=== PATIENT | male | born 1960 | race Caucasian/White ===

== ENCOUNTER 2017-04-29 03:25 | Emergency (ER) | payer OTHER ==
[~2017-04-29] VITALS: Ht 180.3 cm; Wt 117.9 kg
--- NOTE | ~2017-04-29 | CR93 ---
[facility] A Service of [facility] RADIOLOGY TEXT RESULTS PATIENT: REJI URBAN LOCATION: [facility] : 56 UNIT #: [id number] AGE: [address]: Naresh Latham DO SEX: M ORDER DR: [id number] [facility] [address] [place], [place] [address] [id number] E MR#: [id number] Acc #: [id number] NAME: REJI URBAN : 1960 SEX: M STUDY DATE/TIME: 04/29/2017 4:35 UNIT: [facility] ROOM: STUDY DESCRIPTION: CR Elbow Min 3 Views Lt Attending Physician: Naresh Latham D.O. Ordering Physician: Naresh Latham D.O. Primary Care Physician: Mary Oliva A.P.R.N. MEDICAL IMAGING REPORT This report is preliminary unless electronic signature is present EXAM Left elbow series INDICATION Left elbow pain for the past 3 weeks. PROCEDURE Three views of the left elbow. COMPARISON None. FINDINGS No acute fracture. No dislocation or joint effusion. IMPRESSION No acute findings. Dictated by... Andrea Tariq M.D. THIS IS AN ELECTRONICALLY VERIFIED REPORT Andrea Tariq M.D. at 04/29/2017 10:00 PM EDIN/toshia TD: 04/29/2017 10:37 JOB #: [id number] MEDICAL IMAGING REPORT Page 1 of 1 COPY
[~2017-04-29 03:25] MED LIST: FLEXERIL PO; LORCET 10-6501 EACH PO
[2017-04-29 04:28] LABS: BASOPHIL# 0.2 X10e3 (0-0.3); BASOPHIL% 1.5 % (0-2.5); EOSINOPHIL# 0.2 X10e3 (0-0.7); EOSINOPHIL% 1.6 % (0.0-7.0); HEMATOCRIT 41.8 % (38.0-50.0); HEMOGLOBIN 14.1 gm/dL (13.0-16.0); LYMPHOCYTE% 29.7 % (17.0-45.0); MEAN CORPUSCULAR HGB CONC 33.7 g/dL (30-36); MONOCYTE# 0.7 X10e3 (0-1.0); MONOCYTE% 6.9 % (3.0-12.0); NEUTROPHIL# 6.1 X10e3 (1.5-7.1); NEUTROPHIL% 60.3 % (40-75); PLATELET COUNT 166 X10e3 (140-420); RED CELL DISTRIBUTION WIDTH 14.3 % (11.0-15.5); WHITE BLOOD COUNT 10.1 X10e3 (4.0-10.5)
[2017-04-29 04:34] LABS: DIFF IND NO
[2017-04-29 04:52] LABS: BUN/CREATININE RATIO 11.11; CALCIUM SERUM 8.8 mg/dL (8.4-10.2); CREATININE SERUM 0.9 mg/dL (0.6-1.4); GLOM FILT RATE Estimated 93.8 mL/min (>60); POTASSIUM 3.4 mmol/L (3.5-5.1); URIC ACID 7.3 mg/dL (2.6-7.2)
== END 2017-04-29 06:02 | disposition home or self-care (01) ==
LOC: CED 03:25
PROVIDERS: Emergency Medicine
DX: M70.32 Other bursitis of elbow, left elbow (principal); R03.0 Elevated blood-pressure reading, without diagnosis of hypertension; F17.200 Nicotine dependence, unspecified, uncomplicated
CPT/HCPCS: 29260; 36415; 73080; 80048; 84550; 85025; 96374; 99283; J1885